=== PATIENT | female | born 1970 | race Two or more races ===

== ENCOUNTER 2018-05-26 11:34 | Outpatient (CLI) | payer OTHER | END 2018-05-26 14:26 | disposition home or self-care (01) | LOC: RX STUDY 11:34 | DX: D50.8 Other iron deficiency anemias (principal) ==

== ENCOUNTER 2021-01-04 09:18 | Outpatient (CLI) | payer OTHER | END 2021-01-04 09:24 | disposition home or self-care (01) | LOC: RX STUDY 09:18 | PROVIDERS: ATTEND Surgery | DX: R12 Heartburn (principal) ==